=== PATIENT | female | born 1960 | race Caucasian/White ===

== ENCOUNTER → 2016-06-03 | Outpatient (CLI) | payer OTHER ==
--- NOTE | 2016-06-03 08:52 | RAD ---
Indication difficulty breathing. Asthma attack. PA and lateral views of the chest were obtained and are compared to an examination 04/23/2015. Heart size is unchanged. Pulmonary vasculature is within normal limits. A consolidated pneumonia is not seen. There is no pleural fluid or pneumothorax. There has not been a significant change relative to the previous exam. IMPRESSION: No acute or focal process. No significant change
== END | disposition home or self-care (01) ==
LOC: DXRADRC 07:49
PROVIDERS: ATTEND Physician Assistant Medical
DX: J45.909 Unspecified asthma, uncomplicated (principal)
CPT/HCPCS: 71020

== ENCOUNTER → 2016-08-05 | Outpatient (CLI) | payer OTHER ==
--- NOTE | 2016-08-05 08:40 | RAD ---
Indication chest congestion with productive cough for 6 days. PA and lateral views of the chest were obtained. Comparison is made to an examination 06/03/2016. The heart and pulmonary vessels appear normal. The lungs are clear. There is no pleural fluid or pneumothorax. There has not been a significant change compared to the previous exam. IMPRESSION: No acute or focal process. No significant change
== END | disposition home or self-care (01) ==
LOC: DXRADRC 07:57
PROVIDERS: ATTEND Physician Assistant Medical
DX: R05 Cough (principal); R09.89 Other specified symptoms and signs involving the circulatory and respiratory systems
CPT/HCPCS: 71020

== ENCOUNTER → 2018-06-11 | Outpatient (CLI) | payer OTHER ==
--- NOTE | 2018-06-11 10:09 | RAD ---
HIP LEFT 2 VIEW, LUMBAR SPINE MIN 4V History: Low back pain into the left hip and left leg for one month Comparison: None Lumbar spine: Findings: 6 views lumbar spine are submitted. Lumbar vertebral body stature is maintained. There is multilevel facet degenerative change greater inferiorly of the lumbar spine. There is minimal grade 1 anterior spondylolisthesis at L4-5, negligible posterior subluxation L1 relative to L2. There is fairly advanced degenerative disc disease at L4-5, somewhat lesser degree at L2-3 and L1-2 with spondylosis at the same levels. There has been cholecystectomy. Impression: 1. There is multilevel degenerative disc disease greatest L1-2, L2-3, L4-5. There is spondylosis at the same levels. There is grade 1 anterior spondylolisthesis at L4-5, very minimal posterior subluxation of L1 relative L2. There is multilevel lumbar facet degenerative change. Left hip: FINDINGS: 2 views of the left hip are submitted. No acute fracture or dislocation is identified. Left femoral head morphology is preserved. Left hip joint space is maintained. IMPRESSION: 1. No significant abnormality is identified by radiographs. Electronically signed by: Feliz Verduzco MD (06/11/2018 10:06 AM) [facility]
== END | disposition home or self-care (01) ==
LOC: PMG 09:31
PROVIDERS: ATTEND Physician Assistant Medical
DX: M51.36 Other intervertebral disc degeneration, lumbar region (principal); M47.896 Other spondylosis, lumbar region; M43.16 Spondylolisthesis, lumbar region
CPT/HCPCS: 72110; 73502

== ENCOUNTER → 2018-09-01 | Outpatient (CLI) | payer OTHER ==
--- NOTE | 2018-09-01 16:38 | RAD ---
Right shoulder, 4 views, 09/01/2018: HISTORY: Shoulder pain after a fall There are mild sclerotic and cystic changes at rotator cuff insertion sites on the greater tuberosity. There is mild spurring at the AC joint. No fracture or dislocation is identified. The periarticular soft tissues are unremarkable. IMPRESSION: 1. Mild degenerative change. 2. No acute bony abnormality is detected. Electronically signed by: Alexander Dolan MD (09/01/2018 4:35 PM) [facility] [place]
== END | disposition home or self-care (01) ==
LOC: PMG 09:25
PROVIDERS: ATTEND Physician Assistant
DX: M19.011 Primary osteoarthritis, right shoulder (principal); M75.91 Shoulder lesion, unspecified, right shoulder; M25.712 Osteophyte, left shoulder
CPT/HCPCS: 73030